=== PATIENT | male | born 1980 | race Caucasian/White ===

== ENCOUNTER 2025-08-30 18:41 | Inpatient (IN) | payer MEDICAID ==
[~2025-08-30] VITALS: Ht 177.8 cm; Wt 100.7 kg
[2025-08-30] MEDS ORDERED: ARIP400S3 IM (19:09)
[2025-08-30] MEDS ORDERED: SENN-376 PO (19:09)
[2025-08-30] MEDS ORDERED: CLOZ100T61 PO (19:09)
[2025-08-30] MEDS ORDERED: HYDR25TA83 PO (19:09)
[2025-08-30] MEDS ORDERED: MEMA10TA24 PO (19:09)
[2025-08-30] MEDS ORDERED: METO25 PO (19:09)
[2025-08-30] MEDS ORDERED: ESCI20TA87 PO (19:09)
[2025-08-30] MEDS ORDERED: OLAN10TA74 PO (19:09)
[2025-08-30] MEDS ORDERED: HYDR50CA7 PO (19:09)
[2025-08-30] MEDS ORDERED: BUSP15 PO (19:09)
[2025-08-30 20:26] LABS: COVID AG,FIA SOURCE NASAL SWAB
[2025-08-30 20:31] LABS: APPEARANCE,URINE CLEAR (CLEAR); GLUCOSE, URINE (UA) NEGATIVE (NEGATIVE); LEUKOCYTE ESTERASE ,URINE NEGATIVE (NEGATIVE); NITRATE,URINE NEGATIVE (NEGATIVE); OCCULT BLOOD,URINE NEGATIVE (NEGATIVE); PH,URINE DRUG SCREEN 6.0 (5.0-8.0); SPECIFIC GRAVITIY, URINE 1.033 (1.003-1.030)
[2025-08-30 20:36] LABS: ALCOHOL, URINE DRUG SCREEN NEGATIVE (NEGATIVE); AMPHET/METH SCREEN,URINE NEGATIVE (NEGATIVE); BARBITURATE SCREEN, URINE NEGATIVE (NEGATIVE); CANNABINOID SCREEN,URINE NEGATIVE (NEGATIVE); COCAINE SCREEN,URINE NEGATIVE (NEGATIVE); METHADONE SCREEN, URINE NEGATIVE (NEGATIVE)
[2025-08-30 20:37] LABS: PLATELET COUNT (AUTO) 302 K/uL (150-450); RED BLOOD CELL COUNT(AUTO) 5.06 MIL/uL (4.50-5.90); RED CELL DISTRIBUTION WIDTH 14.4 % (11.5-14.5); WHITE BLOOD COUNT (AUTO) 11.1 K/uL (4.5-11.0)
[2025-08-30 20:49] LABS: SARS-COV2 (COVID) ANTIGEN,FIA Negative (Negative)
[2025-08-30 20:51] LABS: CALCIUM, TOTAL 9.2 mg/dL (8.8-10.5); CREATININE 1.27 mg/dL (0.60-1.30); GLOMERULAR FILTR. RATE CALC > 60 mL/min (>60); GLUCOSE,RANDOM 101 mg/dL (70-110); SODIUM SERUM 143 mmol/L (136-145); UREA NITROGEN, BLOOD 21 mg/dL (7-18)
[2025-08-30 20:52] LABS: ALCOHOL, BLOOD (SERUM) < 3 mg/dL (0-10)
[2025-08-30 21:03] LABS: ASPARTATE AMINOTRANSFERASE 15 U/L (15-37); TOTAL PROTEIN, SERUM 7.5 g/dL (6.4-8.2)
[2025-08-30] MEDS ORDERED: ZOLPIDEM TARTRATE 10 MG TABLET PO PRN (23:30)
[2025-08-31 01:05] VITALS: BP 138/82; PULSE 82; RESP 16; TEMP 96.9; O2SAT 100
[2025-08-31 01:30] VITALS: BP 138/82; PULSE 82; RESP 16; TEMP 96.9; O2SAT 100
[2025-08-31] MEDS ORDERED: ALBUTEROL SULFATE HFA 90 MCG/PUFF 8 GM INHALER IH PRN (06:30)
[2025-08-31] MEDS ORDERED: MAG HYDROX/ALUMINUM HYD/SIMETH ES 30 ML SUSPENSION UDCUP PO PRN (06:30)
[2025-08-31] MEDS ORDERED: GuaiFENesin/D-METHORPHAN [SUGAR-FREE] 200-20MG/10 ML SYRUP UDCUP PO PRN (06:30)
[2025-08-31] MEDS ORDERED: IBUPROFEN 400 MG TABLET PO PRN (06:30)
[2025-08-31] MEDS ORDERED: LOPERAMIDE HCL 2 MG CAPSULE PO PRN (06:30)
[2025-08-31] MEDS ORDERED: NICOTINE 14 MG/24 HOUR PATCH TD PRN (06:30)
[2025-08-31] MEDS ORDERED: ACETAMINOPHEN 325 MG TABLET PO PRN (06:30)
[2025-08-31] MEDS ORDERED: MAGNESIUM HYDROXIDE SUSPENSION 30 ML UDCUP PO PRN (06:30)
[2025-08-31] MEDS ORDERED: ONDANSETRON 4 MG TABLET PO PRN (06:30)
[2025-08-31] MEDS ORDERED: PETROLATUM,WHITE 28 GM JELLY TP PRN (06:30)
[2025-08-31] MEDS ORDERED: DOCUSATE SODIUM 100 MG CAPSULE PO PRN (06:30)
[2025-08-31 07:10] LABS: PLATELET COUNT (AUTO) 284 K/uL (150-450); RED BLOOD CELL COUNT(AUTO) 4.80 MIL/uL (4.50-5.90); RED CELL DISTRIBUTION WIDTH 14.3 % (11.5-14.5); WHITE BLOOD COUNT (AUTO) 7.8 K/uL (4.5-11.0)
[2025-08-31 07:42] LABS: ASPARTATE AMINOTRANSFERASE 14 U/L (15-37); CALCIUM, TOTAL 8.8 mg/dL (8.8-10.5); CREATININE 1.13 mg/dL (0.60-1.30); GLOMERULAR FILTR. RATE CALC > 60 mL/min (>60); GLUCOSE,RANDOM 94 mg/dL (70-110); SODIUM SERUM 141 mmol/L (136-145); TOTAL PROTEIN, SERUM 6.9 g/dL (6.4-8.2); UREA NITROGEN, BLOOD 17 mg/dL (7-18)
[2025-08-31] MEDS: MEMANTINE HCL 10 MG TABLET PO SCH (08:42)
[2025-08-31] MEDS: METOPROLOL TARTRATE 25 MG TABLET PO SCH (08:47)
[2025-08-31 09:45] VITALS: BP 118/85; PULSE 83; RESP 16; TEMP 97.8; O2SAT 97
[2025-08-31 11:48] LABS: CHOL/HDL RATIO 3.6 (4.2-7.3); LDL CHOL (CALC.) 129.0 mg/dL (0-130)
[2025-08-31 20:38] VITALS: BP 114/82; PULSE 89; RESP 18; TEMP 97.7; O2SAT 96
[2025-09-01] MEDS: MEMANTINE HCL 10 MG TABLET PO SCH (09:00)
[2025-09-01] MEDS: ESCITALOPRAM OXALATE 20 MG TABLET PO SCH (09:51)
[2025-09-01 10:55] VITALS: BP 121/88; PULSE 91; RESP 18; TEMP 98; O2SAT 98
[2025-09-01 20:00] VITALS: BP 114/81; PULSE 82; RESP 18; TEMP 98.4; O2SAT 95
[2025-09-01 21:34] LABS: CHOL/HDL RATIO 3.7 (4.2-7.3); LDL CHOL (CALC.) 136.0 mg/dL (0-130)
[2025-09-02 08:00] VITALS: BP 124/79; PULSE 99; RESP 18; TEMP 97.5; O2SAT 100
[2025-09-02 17:45] VITALS: BP 130/75; PULSE 89
[2025-09-02 23:30] VITALS: BP 118/71; PULSE 70; RESP 18; TEMP 98.1; O2SAT 97
[2025-09-03 11:25] VITALS: BP 108/82; PULSE 100; RESP 19; TEMP 97; O2SAT 100
[2025-09-03 20:10] VITALS: BP 129/86; PULSE 103; RESP 18; TEMP 98; O2SAT 96
[2025-09-04 09:10] VITALS: BP 137/81; PULSE 92; RESP 12; TEMP 97.3; O2SAT 98
[2025-09-04 21:05] VITALS: BP 118/79; PULSE 77; RESP 16; TEMP 98.1; O2SAT 100
[2025-09-05 09:00] VITALS: BP 118/78; PULSE 79; RESP 16; TEMP 97.9; O2SAT 97
[2025-09-05 19:01] LABS: GLUCOMETER DEV NAME(LOC) 3EX.2; GLUCOSE,POINT OF CARE 174 MG/DL (70-110)
[2025-09-05 20:00] VITALS: BP 116/92; PULSE 91; RESP 18; TEMP 98.4; O2SAT 99
[2025-09-06 08:05] VITALS: BP 122/89; PULSE 89; RESP 17; TEMP 97.7; O2SAT 98
[2025-09-06 20:43] VITALS: BP 116/78; PULSE 80; RESP 18; TEMP 98.4; O2SAT 99
[2025-09-07 12:51] LABS: PLATELET COUNT (AUTO) 327 K/uL (150-450); RED BLOOD CELL COUNT(AUTO) 5.01 MIL/uL (4.50-5.90); RED CELL DISTRIBUTION WIDTH 14.1 % (11.5-14.5); WHITE BLOOD COUNT (AUTO) 8.5 K/uL (4.5-11.0)
[2025-09-07 13:06] VITALS: BP 113/72; PULSE 79; RESP 18; TEMP 98; O2SAT 97
[2025-09-07 20:30] VITALS: BP 109/75; PULSE 79; RESP 19; TEMP 98.3; O2SAT 98
[2025-09-08 08:08] VITALS: BP 115/88; PULSE 85; RESP 17; TEMP 98.6; O2SAT 97
[2025-09-08 21:39] VITALS: BP 111/71; PULSE 64; RESP 18; TEMP 97.7; O2SAT 99
[2025-09-09 12:36] VITALS: BP 146/100; PULSE 66; RESP 18; TEMP 98; O2SAT 99
[2025-09-09 16:45] VITALS: BP 141/84; PULSE 103; RESP 18; TEMP 97.7; O2SAT 96
[2025-09-09 17:11] LABS: GLUCOMETER DEV NAME(LOC) 3EX.2; GLUCOSE,POINT OF CARE 103 MG/DL (70-110)
[2025-09-09 21:14] VITALS: BP 125/89; PULSE 81; RESP 18; TEMP 97.7; O2SAT 96
[2025-09-10 11:42] VITALS: BP 109/90; PULSE 75; RESP 17; TEMP 98.9; O2SAT 97
[2025-09-10 21:05] VITALS: BP 100/66; PULSE 68; RESP 18; TEMP 98.4; O2SAT 97
[2025-09-11 12:46] VITALS: BP 125/73; PULSE 71; RESP 18; TEMP 97.8; O2SAT 95
[2025-09-11 21:12] VITALS: BP 116/77; PULSE 70; RESP 19; TEMP 97.7; O2SAT 98
[2025-09-12] MEDS ORDERED: CLOZ25TA52 PO (13:46)
[2025-09-12 15:06] VITALS: BP 114/83; PULSE 91; RESP 18; TEMP 97.7; O2SAT 96
== END 2025-09-12 18:59 | disposition home or self-care (01) | DRG 750 ==
LOC: EMS 18:41 → 3EI 23:56
PROVIDERS: ADMIT Psychiatry & Neurology Child & Adolescent Psychiatry; ATTEND Psychiatry & Neurology Child & Adolescent Psychiatry
PROC: GZ56ZZZ Individual Psychotherapy, Supportive (ICD-10-PCS; principal; 2025-08-31)
DX: F20.9 Schizophrenia, unspecified (principal); F03.90 Unspecified dementia, unspecified severity, without behavioral disturbance, psychotic disturbance, mood disturbance, and anxiety; I10 Essential (primary) hypertension; Z20.822 Contact with and (suspected) exposure to COVID-19; G47.00 Insomnia, unspecified; K59.00 Constipation, unspecified; Z79.899 Other long term (current) drug therapy
CPT/HCPCS: 80048; 80053; 80061; 80076; 80307; 81003; 82962; 83036; 84436; 84443; 85025; 87081; 99285; G0480

== ENCOUNTER 2025-09-14 17:08 | Emergency (ER) | payer MEDICAID ==
[~2025-09-14] VITALS: Ht 170.2 cm; Wt 90.9 kg
[~2025-09-14 17:08] MED LIST: BUSP15 PO; CLOZ100T61 PO; CLOZ25TA52 PO; ESCI20TA87 PO; MEMA10TA24 PO; METO25 PO; OLAN10TA74 PO
[2025-09-14 19:17] VITALS: TEMP 98.7
[2025-09-14 21:15] LABS: PLATELET COUNT (AUTO) 331 K/uL (150-450); RED BLOOD CELL COUNT(AUTO) 5.06 MIL/uL (4.50-5.90); RED CELL DISTRIBUTION WIDTH 14.5 % (11.5-14.5); WHITE BLOOD COUNT (AUTO) 12.7 K/uL (4.5-11.0)
[2025-09-14 21:22] LABS: CALCIUM, TOTAL 8.8 mg/dL (8.8-10.5); CREATININE 1.10 mg/dL (0.60-1.30); GLOMERULAR FILTR. RATE CALC > 60 mL/min (>60); GLUCOSE,RANDOM 96 mg/dL (70-110); SODIUM SERUM 140 mmol/L (136-145); UREA NITROGEN, BLOOD 14 mg/dL (7-18)
[2025-09-15 00:30] VITALS: BP 132/88; PULSE 98; RESP 18; O2SAT 98
== END 2025-09-15 00:57 | disposition home or self-care (01) ==
LOC: EMS 17:08
DX: F25.9 Schizoaffective disorder, unspecified (principal); Z79.899 Other long term (current) drug therapy
CPT/HCPCS: 99284; 80048; 85025; G0480